=== PATIENT | female | born 1975 | race Caucasian/White ===

== ENCOUNTER 2021-01-30 06:55 | Emergency (ER) | payer OTHER ==
[~2021-01-30] VITALS: Ht 160 cm; Wt 81.2 kg
[~2021-01-30 06:55] MED LIST: BYDUREON2 MG; CLOPIDOGREL75 MG; FIORICET 50-321 EACH PO; GLUCOPHAGE1000 MG; IBUPROFEN 800800 M1 PO; LISINOPRIL5 MG; LUNESTA1 MG; MACROBID 100 M100 M1 PO; NORCO 5-325 TA1 EACH PO; OXYBUTYNIN 5 MG5 M2; PERCOCET 5-3251 EACH PO; PERCOCET 7.5-51 EACH PO; SIMVASTATIN40 MG; TOPAMAX50 MG PO; TRADJENTA5 MG; VERAPAMIL ER180 MG; ZOFRAN ODT4 MG PO; [UNRECOGNIZED DRUG - OTHER]; [UNRECOGNIZED DRUG - OTHER] PO
[2021-01-30] MEDS ORDERED: BUTALB-APAP-CA1 EACH PO (07:23)
[2021-01-30] MEDS ORDERED: CLONAZEPAM 0.50.5 M1 PO (07:24)
[2021-01-30] MEDS ORDERED: ESZOPICLONE1 MG PO (07:24)
[2021-01-30] MEDS ORDERED: PROTONIX40 M2 PO (07:24)
[2021-01-30] MEDS ORDERED: TOPROL XL25 MG PO (07:25)
[2021-01-30] MEDS ORDERED: VENLAFAXINE HC150 M1 PO (07:26)
[2021-01-30] MEDS ORDERED: NEURONTIN300 MG PO (07:26)
[2021-01-30] MEDS ORDERED: PLAVIX 75 MG TA75 MG PO (07:26)
[2021-01-30 08:21] LABS: ABSOLUTE MONOCYTES 0.4 thou/uL (0.0-1.2); ABSOLUTE NEUTROPHILS 3.7 thou/uL (1.6-8.1); BASOPHILS 0.6 %; EOSINOPHILS 0.5 %; HEMATOCRIT 41.5 % (37.0-47.0); HEMOGLOBIN 13.7 gm/dL (12.0-15.0); LYMPHOCYTES 20.1 %; MCH 27.7 pg (26.0-34.0); MCHC 33.1 g/dL (28.0-37.0); MCV 83.8 fL (80.0-100.0); MONOCYTES 7.2 %; MPV 8.3 fl. (7.2-11.1); NUCLEATED RBCS 0 /100WBC; PLATELET COUNT* 256 thou/uL (150-400); POLYS 71.6 %; RBC 4.95 mil/uL (4.20-5.00); WBC 5.1 thou/uL (4.0-11.0)
[2021-01-30 08:22] LABS: PCO2 VENOUS 41.8 mmHg (41.0-51.0)
[2021-01-30 08:33] LABS: CALCIUM 8.8 mg/dL (8.5-10.1); CREATININE 0.7 mg/dL (0.6-1.3); POTASSIUM 3.2 mmol/L (3.5-5.1)
[2021-01-30 08:38] LABS: ALBUMIN 3.7 g/dL (3.4-5.0); TOTAL BILIRUBIN 0.3 mg/dL (<0.1-1.0); TOTAL PROTEIN 7.4 g/dL (6.4-8.2)
[2021-01-30 09:06] VITALS: BP 128/80
== END 2021-01-30 09:53 | disposition home or self-care (01) ==
LOC: M.ERS 06:55
PROVIDERS: Family Medicine
DX: E11.65 Type 2 diabetes mellitus with hyperglycemia (principal); G43.909 Migraine, unspecified, not intractable, without status migrainosus; Z90.710 Acquired absence of both cervix and uterus; Z90.49 Acquired absence of other specified parts of digestive tract; Z79.899 Other long term (current) drug therapy; Z88.6 Allergy status to analgesic agent